=== PATIENT | female | born 1995 | race Caucasian/White ===

== ENCOUNTER 2018-05-23 09:26 | Emergency (ER) | payer MEDICAID ==
[~2018-05-23] VITALS: Ht 167.6 cm; Wt 115.2 kg
[2018-05-23 09:37] VITALS: Ht 167.6 cm; Wt 115.2 kg
[2018-05-23 12:28] VITALS: BP 132/81
== END 2018-05-23 12:28 | disposition home or self-care (01) ==
LOC: ED 09:26
DX: J06.9 Acute upper respiratory infection, unspecified (principal); J45.901 Unspecified asthma with (acute) exacerbation; G43.909 Migraine, unspecified, not intractable, without status migrainosus; Z98.890 Other specified postprocedural states
CPT/HCPCS: J7512; J7620